=== PATIENT | male | born 1930 | race Caucasian/White ===

== ENCOUNTER 2016-06-23 02:49 | Inpatient (IN) | payer MEDICARE, BC ==
[2016-06-23 03:09] LABS: BASOPHIL# 0.1 X 10^3uL (0.0-0.1); BASOPHILS 0.6 % (0.0-2.0); EOSINOPHILS 0.4 % (0.0-6.0); EOSINOPHILS# 0.1 X 10^3uL (0.0-0.4); HEMOGLOBIN 18.7 g/dL (14.0-18.0); LYMPHOCYTES 6.8 % (20.0-40.0); LYMPHOCYTES# 0.9 X 10^3uL (0.8-3.8); MEAN CELL VOLUME 86.4 fL (80.0-100.0); MEAN CORPUS. HGB CONCENTRATION 33.3 g/dL (32.0-36.0); MEAN CORPUSCULAR HEMOGLOBIN 28.8 pg (29.0-35.0); MEAN PLATELET VOLUME 8.2 fL (7.4-10.4); MONOCYTES 5.9 % (2.0-10.0); MONOCYTES# 0.8 X 10^3uL (0.2-1.0); NEUTROPHILS 86.3 % (54.0-75.0); NEUTROPHILS# 10.9 X 10^3uL (2.6-6.7); PLATELET COUNT 187 X 10^3uL (130-440); RED BLOOD COUNT 6.48 X 10^6uL (4.20-6.10); RED CELL DISTRIBUTION WIDTH 12.7 % (11.5-14.5); WHITE BLOOD COUNT 12.8 X 10^3uL (3.9-10.7)
[2016-06-23] MEDS ORDERED: ONDANSETRON ODT 4 MG TAB.RAPDIS ONE (03:11)
[2016-06-23 03:18] LABS: ALBUMIN 4.3 g/dL (3.5-5.0); ALKALINE PHOSPHATASE 109 U/L (38-126); ALT 51 U/L (21-72); AST 33 U/L (17-59); BILIRUBIN, DIRECT 0.4 mg/dL (0.0-0.4); BLOOD UREA NITROGEN 20 mg/dL (9-20); CALCIUM 9.8 mg/dL (8.4-10.2); CHLORIDE 103 mmol/L (98-107); CREATININE 0.8 mg/dL (0.7-1.3); GLUCOSE 133 mg/dL (70-100); LIPASE 178 U/L (23-300); POTASSIUM 4.3 mmol/L (3.5-5.1); SODIUM 143 mmol/L (137-145); TOTAL PROTEIN 7.8 g/dL (6.3-8.2)
[2016-06-23] MEDS ORDERED: HOME MEDICATION LIST NEEDED 1 EA EACH MISC ONE (03:46)
[2016-06-23] MEDS ORDERED: ACETAMINOPHEN 325 MG TABLET PO PRN (03:51)
--- NOTE | 2016-06-23 04:25 | ER PHYSICIAN DOCUMENTATION ---
Physician Documentation [place] [facility] Name:Sandor Mota Age:85 yrs Sex:Male :1930 Arrival Date:06/23/2016 Time:02:49 Bed4 Private MD:Kaylah Rios ED, John Disposition: 06/23/16 04:00 Admit ordered for Kaykay Beltran. Preliminary diagnosis are Vomiting - Dehydration, Weakness. - Bed requested for Medical/Surgical. - Condition is Fair. - Problem is new. - Symptoms are unchanged. 23 HR OBS Yes HPI: 06/23 03:26 This 85 yrs old Male presents to ER with complaints of Nausea/Vomiting. jm 03:26 The patient presents to the emergency department with nausea, with vomiting, without jm any complaints of abdominal pain. Onset: The symptom(s)/episode began/occurred at 21:00. Possible causes: unknown. The symptoms are alleviated by nothing. Associated signs and symptoms: Pertinent positives: fever. Severity of symptoms: in the emergency department the symptoms have improved mildly. Unable to obtain HPI due to baseline dementia. The patient has not experienced similar symptoms in the past. The patient has not recently seen a physician. 85 yo M who started vomiting at 9pm last night and continued throughout the night. He vomited COLLEGE RECRUITER, but coughed a lot after the last one. His finally called 911. HX not obtainable from pt, as he has severe dementia. . Historical: - Allergies: No known drug Allergies; - Home Meds: 1. Lovastatin Oral 2. Aspirin Oral 3. Ambien Oral - PMHx: DEMENTIA; BPH; Hypertension; Headaches; Hematuria; CANCER, BLADDER; DEMENTIA; GOUT; TRANSIENT CEREBRAL ISCHEMIA; Fall (September 21, 2015); Chronic Dementia (September 21, 2015); Knee Contusion (September 21, 2015); - Tetanus: < 10 years. - Ebola Screening: : Patient negative for fever greater than or equal to 101.5 degrees Fahrenheit, and additional compatible Ebola Virus Disease symptoms. - Immunization history: Flu Vaccine < 1 year. - Social history: Smoking status: Patient states was never smoker of tobacco. ROS: 03:30 Constitutional: Positive for fever. jm 03:30 ENT: Negative for rhinorrhea, sinus congestion, sinus pain, difficulty swallowing. 03:30 Cardiovascular: Negative for chest pain. 03:30 Respiratory: Positive for cough. 03:30 Abdomen/GI: Positive for nausea, vomiting, Negative for abdominal pain, diarrhea. 03:30 : Positive for bladder incontinence, Negative for foul smelling urine. 03:30 Skin: Negative for rash. 03:30 Neuro: Positive for weakness, Negative for near syncope. 03:30 Psych: Positive for insomnia, Negative for drug dependence, alcohol dependence. 03:30 All other systems are negative. Exam: 03:31 Constitutional: The patient appears alert, awake, comfortable. 03:31 Eyes: Periorbital structures: appear normal, Pupils: equal, round, and reactive to light and accomodation. 03:31 Neck: Thyroid: appears normal, Trachea: is midline with no obvious abnormalities. 03:31 Chest/axilla: Inspection: normal, Palpation: is normal. 03:31 Cardiovascular: Rate: tachycardic, Rhythm: regular. 03:31 Respiratory: the patient does not display signs of respiratory distress, Respirations: normal, Breath sounds: are normal. 03:31 Abdomen/GI: Bowel sounds: normal, Palpation: abdomen is soft and non-tender. 03:31 : Male external genitalia: normal, Bladder: is normal. 03:31 Skin: Appearance: Color: pink, Turgor: is poor. 03:31 Neuro: Mentation: able to follow commands, Memory: recent memory is impaired. 03:31 Psych: Behavior/mood is pleasant, cooperative, Affect is calm. 03:43 ENT: Nose: is normal, Mouth: Oral mucosa: dry. Vital Signs: 02:50 BP 181 / 107; Pulse 104; Resp 20; Temp 100.1(TE); Pulse Ox 87% on R/A; rh 04:00 BP 175 / 80; Pulse 90; Resp 19; Pulse Ox 92% on 2 lpm NC; rh 04:23 BP 161 / 91; Pulse 82; Resp 19; Pulse Ox 94% on 3 lpm NC; rh MDM: 03:04 Patient medically screened. abdirizak 03:33 Differential diagnosis: viral gastroenteritis, gastroenteritis. abdirizak 03:38 Differential diagnosis: aspiration PNA. Data reviewed: vital signs, nurses notes, old medical records, lab test result(s), radiologic studies, and as a result, I will admit patient. Test interpretation: by ED physician or midlevel provider: plain radiologic studies, ECG. Counseling: I had a detailed discussion with the patient and/or guardian regarding: the historical points, exam findings, and any diagnostic results supporting the discharge/admit diagnosis, lab results, radiology results, the need for further work-up and treatment in the hospital. Physician consultation: Kaykay Bletran MD regarding admission, and will see patient shortly, later today. Admission orders: after a detailed discussion of the patient's condition and case, the admit orders are written by me. ED course: Pt w possible aspiration causing some hypoxia, but I don't see anything on the CXR that would suggest a large aspiration or hear any wheezing, despite what EMS stated. Perhaps pt has some pneumonitis causing the mild hypoxia, but I feel it is form dehydration and generalized weakness. Pt looks dehydrated on exam w poor skin turgor and dry membranes. 1LNS has dropped down his HR to 90. Will wait for UA to decide if pt needs abx as I cannot find a source (besides maybe GI). . 03:58 ED course: Spoke w Dr. Beltran who is ok w admission. Will hold off on abx until we can jm find a definitive source. . 06/23 03:25 Order name: CBC AUTO DIF, MDIF/RMOR IF IND; Complete Time: 03:26 EDMS 06/23 03:25 Order name: BASIC METABOLIC PANEL; Complete Time: 03:26 EDMS 06/23 03:25 Order name: HEPATIC PANEL; Complete Time: 03:26 EDMS 06/23 03:25 Order name: LIPASE; Complete Time: 03:26 EDMS 06/23 03:38 Order name: LACTATE; Complete Time: 03:53 EDMS 06/23 02:54 Order name: I & O; Complete Time: 03:35 rh 06/23 02:54 Order name: IV large bore X 2; Complete Time: 03:35 rh 06/23 02:54 Order name: NPO; Complete Time: 03:35 rh 06/23 02:54 Order name: Oxygen; Complete Time: 03:35 rh 06/23 02:54 Order name: Place Patient On Monitor; Complete Time: 03:35 rh 06/23 02:54 Order name: Pulse Ox Continuous; Complete Time: 03:35 rh Dispensed Medications: 03:05 Drug: NS 0.9% 1000 ml; Route: IV; Rate: bolus; Site: right antecubital; rh 04:12 Follow up: IV Status: Completed infusion; IV Intake: 1000ml rh Signatures: Curtis Nevarez MD MD jm Hofsess, Rachel
--- NOTE | 2016-06-23 04:25 | ER NURSING DOCUMENTATION ---
Nurse's Notes [facility] Name:Sandor Mota Age:85 yrs Sex:Male :1930 Arrival Date:06/23/2016 Time:02:49 Bed4 Private MD:Kaylah Rios Diagnosis:Vomiting - Dehydration;Weakness Presentation: 06/23 02:53 Acuity: OLIVA 2 03:35 Presenting complaint: EMS states: PT has been vomiting throughout the day, this evening rh his vomited on himself and was coughing, woke up. Pt was covered in urine and vomit. Transition of care: Home. Care prior to arrival: IV initiated. gauge and site 20 G in the R AC Glucose check. 137 Oxygen administered. IV Fluids given by EMS Other 150 NS Medication(s) given: Zofran 4mgODT Labs. 03:35 Method Of Arrival: EMS: 410 Triage Assessment: 03:43 General: Appears in no apparent distress, Behavior is cooperative. Pain: Unable to use pain scale. Pt unable to understand due to demetia. EENT: Oral mucosa is dry. Neuro: Level of Consciousness is awake, alert. Cardiovascular: Capillary refill < 3 seconds. Respiratory: Airway is patent Respiratory effort is even, unlabored, Respiratory pattern is regular, symmetrical, Breath sounds are diminished in right posterior middle lobe and right posterior lower lobe. GI: Abdomen is non- distended Bowel sounds present X 4 quads. Parent/caregiver reports the patient having nausea, vomiting. : Parent/caregiver report the patient having incontinence BASELINE. Derm: Skin is intact, Skin is pink, warm & dry. Historical: - Allergies: No known drug Allergies; - Home Meds: 1. Lovastatin Oral 2. Aspirin Oral 3. Ambien Oral - PMHx: DEMENTIA; BPH; Hypertension; Headaches; Hematuria; CANCER, BLADDER; DEMENTIA; GOUT; TRANSIENT CEREBRAL ISCHEMIA; Fall (September 21, 2015); Chronic Dementia (September 21, 2015); Knee Contusion (September 21, 2015); - Tetanus: < 10 years. - Ebola Screening: : Patient negative for fever greater than or equal to 101.5 degrees Fahrenheit, and additional compatible Ebola Virus Disease symptoms. - Immunization history: Flu Vaccine < 1 year. - Social history: Smoking status: Patient states was never smoker of tobacco. Screenin:51 Infectious Disease Risk None. Abuse screen: Denies threats or abuse. Denies injuries rh from another. Nutritional screening: No deficits noted. Assessment: 03:51 See Triage Assessment done by same RN. rh Vital Signs: 02:50 BP 181 / 107; Pulse 104; Resp 20; Temp 100.1(TE); Pulse Ox 87% on R/A; rh 04:00 BP 175 / 80; Pulse 90; Resp 19; Pulse Ox 92% on 2 lpm NC; rh 04:23 BP 161 / 91; Pulse 82; Resp 19; Pulse Ox 94% on 3 lpm NC; rh ED Course: 02:53 Patient arrived in ED. em2 02:53 Kaylah Rios MD is Private Physician. em2 02:53 Ximena Romero is Primary Nurse. rh 02:53 Triage completed. rh 02:54 Port Xray Completed. dayron 03:00 Maintain field IV. Dressing intact. Site clean & dry. Gauge & site: 20G in the R AC. rh Oxygen Oxygen administration via non-rebreather mask @ 15L/min. 03:00 Notified ED Physician of patient's arrival and chief complaint. Dr. Nevarez notified. rh 03:04 Curtis Nevarez MD is Attending Physician. 03:05 rework machine operator on. Pulse ox on. NIBP on. rh 03:10 Labs drawn. By flavoring machine operator Sent per order to lab. First set of blood cultures drawn by me. em1 03:40 Quick cath inserted 16 Fr. Returned unable to pass around prostate, attempted with coude' cath . 03:51 Valuables Remains with patient Patient has correct armband on for positive rh identification. Placed in gown. Bed in low position. Call light in reach. Side rails up X 1. Family accompanied patient. 03:59 Kaykay Beltran MD is Admitting Physician. abdirizak Administered Medications: 03:05 Drug: NS 0.9% 1000 ml; Route: IV; Rate: bolus; Site: right antecubital; rh 04:12 Follow up: IV Status: Completed infusion; IV Intake: 1000ml rh Intake: 04:12 IV: 1000ml; Total: 1000ml. rh Output: 03:49 Stool: 1 (Formed Stool) ; Total: 0ml. mv Outcome: 04:00 Decision to Admit by Provider. abdirizak 04:23 Admitted to Med/surg accompanied by nurse, via stretcher, with chart. 04: Condition: stable 04:23 Report given to EV MUNSON FROM MED SURG 04: Instructed on need to admit 04:23 Patient left the ED. Signatures: Curtis Nevarez MD MD jm Abbott, Andressa padgett [facility], [employer] em1 Meinking-reg, Татьяна-reg em2 Ximena Romero funmilayo castellanos
[2016-06-23] MEDS: NORMAL SALINE 1,000 ML IV SCH ×2 (05:18→11:26)
[2016-06-23] MEDS ORDERED: AZITHROMYCIN 250 MG TABLET PO ONE (07:25)
[2016-06-23] MEDS ORDERED: NORMAL SALINE 500 ML IV ONE (07:26)
--- NOTE | 2016-06-23 07:39 | RADIOLOGY REPORT ---
A limited single portable view of the chest is compared with prior film dated 11/2015. The heart and vessels are stable and unremarkable. Stable scarring is seen at the right lung base. There is stable elevation of the right hemidiaphragm. There has been interval development of a mixed infiltrate in the left infrahilar region. No fluid or pneumothorax is seen. IMPRESSION: Interval development of mixed infiltrate in the left infrahilar region. The findings were personally reviewed with Dr. Rios at 0725 hours on 2016. [facility]
[2016-06-23] MEDS ORDERED: cefTRIAXone SODIUM 1,000 MG/10 ML VIAL IV SCH (08:00)
[2016-06-23] MEDS ORDERED: NORMAL SALINE IV SCH (09:00)
[2016-06-23] MEDS ORDERED: AZITHROMYCIN 250 MG TABLET PO SCH (09:00)
[2016-06-23] MEDS ORDERED: CEFTRIAXONE SODIUM IV SCH (09:00)
[2016-06-23] MEDS: cefTRIAXone SODIUM 1,000 MG in NORMAL SALINE MINI-BAG+ 100 ML IV SCH (09:53)
[2016-06-23] MEDS ORDERED: NORMAL SALINE MINI-BAG+ 100 ML IV ONE (09:54)
[2016-06-23 10:42] LABS: URINE MUCUS NONE SEEN (Up to 25%)
[2016-06-23 10:45] LABS: URINE SPERM NONE SEEN
--- NOTE | 2016-06-23 12:20 | RADIOLOGY REPORT ---
A single view of the chest is compared with film earlier on the same date. Patchy infiltrate in the left infrahilar region remains unchanged. Stable scarring at the right lung base and stable elevation of the right hemidiaphragm is noted. The heart and vessels are stable and unremarkable. Views of the abdomen demonstrate a large amount of retained fecal material throughout the colon. Scattered nonspecific small bowel gas is seen. No pathologic calcifications or free air are identified. IMPRESSION: 1. Stable patchy infiltrate in the left infrahilar region. 2. Large amount of retained fecal material throughout the colon. MTDD
--- NOTE | 2016-06-23 12:45 | HISTORY & PHYSICAL ---
DATE OF ADMISSION: 06/23/16 HISTORY OF PRESENT ILLNESS: The patient presented to the emergency room during the night with recurrent emesis over the course of the day. Because of his severe dementia, further history is quite difficult. He apparently did not complain of any abdominal pain but would repeatedly vomit and was unable to keep fluids down. There was no cough, diarrhea, constipation, significant urinary complaints noted by the family. PAST MEDICAL HISTORY 1. Profound dementia perhaps multi-infarct related. Seen by Neurology in the past, but not on medications mostly due to cost reasons. 2. Recurrent falls. 3. History of transitional cell bladder cancer. 4. History of hypertension. 5. Hypercholesterolemia. 6. Possible gout. PAST SURGICAL HISTORY 1. Cholecystectomy. 2. Bladder cancer resected via cystoscope. 3. Transurethral resection of the prostate in 2012. There are no apparent difficulties emptying the bladder in recent history. ALLERGIES: No known allergies. SOCIAL HISTORY: He quite smoking about 30 years ago. Does not drink alcohol. Retired garber and senior benefits analyst. Living with his and adult daughter in [place]. They are taking steps to sell their family home as it is too high maintenance for the alone. Mr. Mota has spent some time at [facility] but they felt they could meet his needs at home and the costs were exorbitant without Medicaid in place so he has been home for the better part of a year. MEDICATIONS He takes 2.5 to 5 mg of Ambien at night otherwise he is up wandering at risk of falls. He takes daily aspirin. PHYSICAL EXAMINATION VITAL SIGNS: Afebrile, blood pressure is 133/72, pulse of 77, respiratory rate 16-20. He is 94% initially on 2 liters of oxygen. Now he is on a half liter of oxygen and still oxygenating very well. GENERAL: He is a thin, frail appearing man with significant dementia. His ability to communicate is significantly decreased from last I saw him, but nursing staff say that he was able to answer a few questions on admission indicating he was not having any pain or nausea and he knew he was at the hospital. HEENT: His mucous membranes appeared dry. Extraocular movements are intact and symmetric. CARDIAC: Distant S1, S2. CHEST: Clear to auscultation. Respirations are easy. ABDOMEN: Reveals somewhat hyperactive bowel tones. The abdomen is scaphoid, thin. It seems to me there is some muscular guarding going on making deep abdominal exam difficult. He does not seem to have definitive pain with palpation of any one part of his abdomen. A bladder scan done at the bedside revealed reasonable results of less than 200 mL of urine in the bladder. A condom catheter is in place. Apparently his prostate or possibly his bladder cancer did not allow a catheter to be placed during the night. There is no urine in the bag yet but he was just admitted a few hours ago. LABORATORY DATA: Reveal white count of 12.8, elevated hemoglobin and hematocrit at 18.7/56. There are 86.3% neutrophils. Chemistries fairly unremarkable. A CMP reveals only a glucose of 133. Urine has not yet been obtained. Chest x-ray was read by Dr. Roberts as a left basilar infiltrate. ASSESSMENT AND PLAN 1. Nausea and vomiting within the last 24 hours in a gentleman with profound dementia thus history is pretty difficult. His CBC and chest x-ray and initial hypoxia suggest there may be a left lower lobe pneumonia. Rocephin and azithromycin will be initiated while we wait for blood cultures and follow CBC. I am also concerned he may have an intra-abdominal process, although it may be a simple viral gastroenteritis. There are no definite signs of obstruction at this time, and an abdominal film will be done for further information and the level of intervention discussed with the family. The is very realistic that her has very advanced dementia and his quality of life has been poor for several years. We will need to decide if we are going to pursue abdominal CT scan if needed or just treat what we see and follow along. This will be discussed with the in person or by phone this morning. Mr. Mota is a clearly stated do not resuscitate. 2. History of bladder cancer and enlarged prostate, unable to place Lewis catheter. There is no significant postvoid residual so I do not see that there are any active issues here although there was potential for them. 3. Dehydration. Regardless of whether this is primarily a pulmonary or gastroenterology diagnosis, the patient is still dehydrated thus he will be given a bolus of saline today and we will monitor his vital signs and urinary output and treat accordingly. MTDD
[2016-06-23] MEDS: LOVASTATIN 20 MG TABLET PO SCH (20:54)
[2016-06-23] MEDS: ZOLPIDEM TARTRATE 5 MG TABLET PO SCH (20:54)
[2016-06-24] MEDS: NORMAL SALINE 1,000 ML IV SCH ×2 (02:42→10:54)
[2016-06-24 05:45] LABS: BASOPHILS 0.5 % (0.0-2.0); EOSINOPHILS 3.2 % (0.0-6.0); EOSINOPHILS# 0.3 X 10^3uL (0.0-0.4); HEMATOCRIT 40.8 % (42.0-54.0); LYMPHOCYTES 19.7 % (20.0-40.0); LYMPHOCYTES# 1.6 X 10^3uL (0.8-3.8); MEAN CELL VOLUME 87.3 fL (80.0-100.0); MEAN CORPUS. HGB CONCENTRATION 34.3 g/dL (32.0-36.0); MEAN PLATELET VOLUME 8.1 fL (7.4-10.4); MONOCYTES 5.9 % (2.0-10.0); MONOCYTES# 0.5 X 10^3uL (0.2-1.0); NEUTROPHILS 70.7 % (54.0-75.0); NEUTROPHILS# 5.6 X 10^3uL (2.6-6.7); PLATELET COUNT 157 X 10^3uL (130-440); RED BLOOD COUNT 4.67 X 10^6uL (4.20-6.10); RED CELL DISTRIBUTION WIDTH 12.7 % (11.5-14.5)
[2016-06-24 05:49] LABS: BLOOD UREA NITROGEN 14 mg/dL (9-20); CALCIUM 8.3 mg/dL (8.4-10.2); CHLORIDE 107 mmol/L (98-107); CREATININE 0.8 mg/dL (0.7-1.3); GLUCOSE 93 mg/dL (70-100); POTASSIUM 3.8 mmol/L (3.5-5.1); SODIUM 139 mmol/L (137-145)
--- NOTE | 2016-06-24 07:41 | PROGRESS NOTE: IM APSO ---
Assessment and Plan - Date of Encounter Date of Encounter: 06/24/16 (1) Constipation Status: Acute Assessment and plan: He likely still has some constipation despite having 1 bowel movement yesterday. Current Visit: No (2) History of bladder cancer Status: Acute Assessment and plan: He evidently had some malignant cells on a bladder wash after his cystoscopic excision, but is not a candidate for surgery. Current Visit: No (3) LLL pneumonia Status: Acute Assessment and plan: Left lower lobe infiltrate on x-ray. He is requiring 2 L/m of oxygen. I will continue him on Rocephin and azithromycin. Current Visit: No (4) Nausea & vomiting Status: Acute Assessment and plan: this was the initial trigger for his admission, but he has had no further episodes since admission. Likely he had a viral syndrome. Current Visit: No (5) UTI (urinary tract infection) Status: Acute Assessment and plan: This is being treated. Culture pending. Continue IV Rocephin Current Visit: No (6) Gait instability Status: Chronic Assessment and plan: At home he is able to walk to the bath. Here he is only able to take a few steps. He will need another day or 2 before he is strong enough to go home Current Visit: No (7) Risk for falls Status: Chronic Assessment and plan: He remains at high risk for falls. I will have him continue physical therapy Current Visit: No (8) Generalized weakness Status: Acute Assessment and plan: Acute on chronic. Continue physical therapy. Current Visit: No (9) Dementia Status: Chronic Assessment and plan: this is quite severe. Current Visit: No - Time Spent With Patient Total time spent with greater than 50% in coordination of care (as documented) at patient's floor/unit and/or counseling patient: Estimated anticipated discharge: 06/26??? IM: PN Subjective General: fatigue, confusion (severe), no fever, no chills Cardiovascular: no chest pain Respiratory: no cough, no wheeze, no SOB Gastrointestinal: constipation, no abdominal pain, no nausea, no vomiting, no diarrhea Musculoskeletal: no pain Integumentary: no rashes Neurological: limb weakness (generalized) IM: PN Objective Exam - I&O/Vital Signs I&O: Intake & Output 06/23/16 06/24/16 06/24/16 21:59 05:59 13:59 Intake Total 1450 Output Total 700 Balance 750 Intake: IV 1300 Left Wrist 1300 Oral 150 Output: Urine 700 Other: Urine Appearance Cloudy Urine Color Dark Kelly Brown Stool Size Large Stool Characteristics Soft Formed Brown Voiding Method Indwelling Catheter Incontinent # Voids 2 # Bowel Movements 1 Vital Signs: Last Vital Signs Temp 36.5 C 06/24/16 06:41 Pulse 99 H 06/24/16 06:41 Resp 16 06/24/16 06:41 BP 159/88 06/24/16 06:41 Pulse Ox 90 06/24/16 06:41 Oxygen Flow Rate 2 Oxygen Delivery Method Nasal Cannula - Constitutional General appearance: Present: average body habitus, cooperative (but very confused.). Absent: acute distress - Head Head exam: Present: normal inspection - ENT ENT exam: Present: mucous membranes moist - Respiratory Respiratory exam: Present: decreased breath sounds, clear - Cardiovascular Cardiovascular exam: Present: RRR - GI/Abdominal GI/Abdominal exam: Present: soft. Absent: tenderness - Extremities Exam Extremities exam: Absent: calf tenderness, edema - Neurological Exam Neurological exam: Present: alert. Absent: oriented X3 (did not answer any questions.) - Psychiatric Psychiatric exam: Present: flat affect - Skin Skin exam: Absent: rash - Allied Health Notes Allied health notes reviewed: case management, nursing, PT - Lab Labs: Laboratory Last Values WBC 8.0 X 10^3uL (3.9-10.7) 06/24/16 05:00 RBC 4.67 X 10^6uL (4.20-6.10) 06/24/16 05:00 Hgb 14.0 g/dL (14.0-18.0) 06/24/16 05:00 Hct 40.8 % (42.0-54.0) L 06/24/16 05:00 MCV 87.3 fL (80.0-100.0) 06/24/16 05:00 MCH 30.0 pg (29.0-35.0) 06/24/16 05:00 MCHC 34.3 g/dL (32.0-36.0) 06/24/16 05:00 RDW 12.7 % (11.5-14.5) 06/24/16 05:00 Plt Count 157 X 10^3uL (130-440) 06/24/16 05:00 MPV 8.1 fL (7.4-10.4) 06/24/16 05:00 Neutrophils % 70.7 % (54.0-75.0) 06/24/16 05:00 Lymphocytes % 19.7 % (20.0-40.0) L 06/24/16 05:00 Eosinophils % 3.2 % (0.0-6.0) 06/24/16 05:00 Basophils % 0.5 % (0.0-2.0) 06/24/16 05:00 Neutrophils # 5.6 X 10^3uL (2.6-6.7) 06/24/16 05:00 Lymphocytes # 1.6 X 10^3uL (0.8-3.8) 06/24/16 05:00 Monocytes 5.9 % (2.0-10.0) 06/24/16 05:00 Monocytes # 0.5 X 10^3uL (0.2-1.0) 06/24/16 05:00 Eosinophils # 0.3 X 10^3uL (0.0-0.4) 06/24/16 05:00 Basophils # 0.0 X 10^3uL (0.0-0.1) 06/24/16 05:00 Sodium 139 mmol/L (137-145) 06/24/16 05:00 Potassium 3.8 mmol/L (3.5-5.1) 06/24/16 05:00 Chloride 107 mmol/L (98-107) 06/24/16 05:00 Carbon Dioxide 27 mmol/L (22-30) 06/24/16 05:00 BUN 14 mg/dL (9-20) 06/24/16 05:00 Creatinine 0.8 mg/dL (0.7-1.3) 06/24/16 05:00 GFR Calculation Not Reportable 06/24/16 05:00 Glucose 93 mg/dL (70-100) 06/24/16 05:00 Lactic Acid 1.4 mmol/L (0.7-2.1) 06/23/16 02:20 Calcium 8.3 mg/dL (8.4-10.2) L 06/24/16 05:00 Total Bilirubin 1.0 mg/dL (0.2-1.3) 06/23/16 02:20 Direct Bilirubin 0.4 mg/dL (0.0-0.4) 06/23/16 02:20 AST 33 U/L (17-59) 06/23/16 02:20 ALT 51 U/L (21-72) 06/23/16 02:20 Alkaline Phosphatase 109 U/L (38-126) 06/23/16 02:20 Total Protein 7.8 g/dL (6.3-8.2) 06/23/16 02:20 Albumin 4.3 g/dL (3.5-5.0) 06/23/16 02:20 Lipase 178 U/L (23-300) 06/23/16 02:20 Urine Color Cancelled 06/23/16 03:56 Urine Appearance Cancelled 06/23/16 03:56 Urine pH Cancelled 06/23/16 03:56 Ur Specific [place] Cancelled 06/23/16 03:56 Urine Protein Cancelled 06/23/16 03:56 Urine Ketones Cancelled 06/23/16 03:56 Urine Blood Cancelled 06/23/16 03:56 Urine Nitrate Cancelled 06/23/16 03:56 Urine Bilirubin Cancelled 06/23/16 03:56 Urine Urobilinogen Cancelled 06/23/16 03:56 Ur Leukocyte Esterase Cancelled 06/23/16 03:56 Urine RBC >100/hpf (0-5/hpf) 06/23/16 03:56 Urine WBC >100/hpf (0-4/hpf) 06/23/16 03:56 Ur Squamous Epith Cells 5-10/hpf (<= 15/hpf) 06/23/16 03:56 Urine Bacteria 20-50 organisms/hpf (<10/hpf) 06/23/16 03:56 Urine Mucus None seen (Up to 25%) 06/23/16 03:56 Urine Sperm None seen 06/23/16 03:56 Urine Glucose Cancelled 06/23/16 03:56 Quality Questions - VTE Prophylaxis Assessment VTE Present on Admission?: No Patient at risk for venous thromboembolism?: Yes VTE Risk Level: High Risk Pharmaceutical VTE prophylaxis contraindication reason: N/A- VTE prophylaxsis ordered Mechanical VTE prophylaxis contraindication reason: N/A- VTE prophylaxsis ordered (9) Dementia Qualifiers: Dementia type: vascular dementia Dementia behavioral disturbance: without behavioral disturbance Qualified Code(s): F01.50 - Vascular dementia without behavioral disturbance
[2016-06-24] MEDS: AZITHROMYCIN 250 MG TABLET PO SCH (08:09)
[2016-06-24] MEDS: POLYETHYLENE GLYCOL 3350 17 GM POWD.PACK PO SCH (08:09)
[2016-06-24] MEDS: cefTRIAXone SODIUM 1,000 MG in NORMAL SALINE MINI-BAG+ 100 ML IV SCH (09:00)
[2016-06-24] MEDS: ZOLPIDEM TARTRATE 5 MG TABLET PO SCH (22:12)
[2016-06-24] MEDS: LOVASTATIN 20 MG TABLET PO SCH (22:12)
--- NOTE | 2016-06-25 08:59 | PROGRESS NOTE: IM APSO ---
Assessment and Plan - Date of Encounter Date of Encounter: 06/25/16 (1) Constipation Status: Acute Assessment and plan: Doing better. One bowel movement yesterday. Current Visit: No (2) History of bladder cancer Status: Acute Assessment and plan: He evidently had some malignant cells on a bladder wash after his cystoscopic excision, but is not a candidate for surgery. Current Visit: No (3) LLL pneumonia Status: Acute Assessment and plan: Left lower lobe infiltrate on x-ray. He is requiring 2 L/m of oxygen. I will continue him on Rocephin and azithromycin. I have some suspicion of an aspiration pneumonia, given his mild dysphagia. According to his , he is swallowing better here with a pureed diet Current Visit: No (4) Nausea & vomiting Status: Acute Assessment and plan: This was the initial trigger for his admission, but he has had no further episodes since admission. Likely he had a viral syndrome. Current Visit: No (5) UTI (urinary tract infection) Status: Acute Assessment and plan: This is being treated. Culture pending. Continue IV Rocephin Current Visit: No (6) Gait instability Status: Chronic Assessment and plan: At home he is able to walk to the bath. Here he is only able to take a few steps. yesterday he seemed to lean toward the right. Today he is not doing that as much. He will need another day or 2 before he is strong enough to go home Current Visit: No (7) Risk for falls Status: Chronic Assessment and plan: He remains at high risk for falls. I will have him continue physical therapy Current Visit: No (8) Generalized weakness Status: Acute Assessment and plan: Acute on chronic. Continue physical therapy. Current Visit: No (9) Dementia Status: Chronic Assessment and plan: this is quite severe. it is possible that he had another TIA yesterday, given his tendency to tip to the right. That seems to be better today. I discussed stroke prophylaxis with his . He will continue on aspirin daily. I discussed the option of a stronger blood thinner, but both of us agreed that the risks may outweigh the benefits, given his high fall risk. They are considering moving to be at lower altitude and closer to children. I support this, but would advise considering a halfway center, rather than a private home. I will discuss these issues with his again tomorrow. I would appreciate further input from social work. Current Visit: No - Time Spent With Patient Total time spent with greater than 50% in coordination of care (as documented) at patient's floor/unit and/or counseling patient: Estimated anticipated discharge: 06/26??? IM: PN Subjective General: fatigue, confusion (severe-chronic), no fever, no chills Cardiovascular: no chest pain Respiratory: no cough, no wheeze, no SOB Gastrointestinal: no abdominal pain, no nausea, no vomiting, no diarrhea, no constipation (he had a bowel movement yesterday.) Musculoskeletal: no pain Integumentary: no rashes Neurological: limb weakness (some concern about right sided weakness yesterday by PT) IM: PN Objective Exam - I&O/Vital Signs I&O: Intake & Output 06/24/16 06/25/16 06/25/16 21:59 05:59 13:59 Intake Total 400 Balance 400 Intake: Oral 400 Other: Urine Appearance Cloudy Urine Color Brown Stool Size Large Stool Characteristics Soft Formed Brown Voiding Method Incontinent Incontinent # Voids 2 Vital Signs: Last Vital Signs Temp 37.1 C 06/25/16 07:00 Pulse 72 06/25/16 07:00 Resp 14 06/25/16 07:00 BP 135/103 06/25/16 07:00 Pulse Ox 92 06/25/16 07:00 Oxygen Flow Rate 1 Oxygen Delivery Method Nasal Cannula - Constitutional General appearance: Present: average body habitus, cooperative (but very confused. He is eating well with a pureed diet.). Absent: acute distress - Head Head exam: Present: normal inspection - ENT ENT exam: Present: mucous membranes moist - Respiratory Respiratory exam: Present: decreased breath sounds, clear - Cardiovascular Cardiovascular exam: Present: RRR - GI/Abdominal GI/Abdominal exam: Present: soft. Absent: tenderness - Extremities Exam Extremities exam: Absent: calf tenderness, edema - Neurological Exam Neurological exam: Present: alert. Absent: oriented X3 (did not answer any questions.) - Psychiatric Psychiatric exam: Present: flat affect - Skin Skin exam: Absent: rash - Allied Health Notes Allied health notes reviewed: case management, nursing, PT - Lab Labs: Laboratory Last Values WBC 8.0 X 10^3uL (3.9-10.7) 06/24/16 05:00 RBC 4.67 X 10^6uL (4.20-6.10) 06/24/16 05:00 Hgb 14.0 g/dL (14.0-18.0) 06/24/16 05:00 Hct 40.8 % (42.0-54.0) L 06/24/16 05:00 MCV 87.3 fL (80.0-100.0) 06/24/16 05:00 MCH 30.0 pg (29.0-35.0) 06/24/16 05:00 MCHC 34.3 g/dL (32.0-36.0) 06/24/16 05:00 RDW 12.7 % (11.5-14.5) 06/24/16 05:00 Plt Count 157 X 10^3uL (130-440) 06/24/16 05:00 MPV 8.1 fL (7.4-10.4) 06/24/16 05:00 Neutrophils % 70.7 % (54.0-75.0) 06/24/16 05:00 Lymphocytes % 19.7 % (20.0-40.0) L 06/24/16 05:00 Eosinophils % 3.2 % (0.0-6.0) 06/24/16 05:00 Basophils % 0.5 % (0.0-2.0) 06/24/16 05:00 Neutrophils # 5.6 X 10^3uL (2.6-6.7) 06/24/16 05:00 Lymphocytes # 1.6 X 10^3uL (0.8-3.8) 06/24/16 05:00 Monocytes 5.9 % (2.0-10.0) 06/24/16 05:00 Monocytes # 0.5 X 10^3uL (0.2-1.0) 06/24/16 05:00 Eosinophils # 0.3 X 10^3uL (0.0-0.4) 06/24/16 05:00 Basophils # 0.0 X 10^3uL (0.0-0.1) 06/24/16 05:00 Sodium 139 mmol/L (137-145) 06/24/16 05:00 Potassium 3.8 mmol/L (3.5-5.1) 06/24/16 05:00 Chloride 107 mmol/L (98-107) 06/24/16 05:00 Carbon Dioxide 27 mmol/L (22-30) 06/24/16 05:00 BUN 14 mg/dL (9-20) 06/24/16 05:00 Creatinine 0.8 mg/dL (0.7-1.3) 06/24/16 05:00 GFR Calculation Not Reportable 06/24/16 05:00 Glucose 93 mg/dL (70-100) 06/24/16 05:00 Lactic Acid 1.4 mmol/L (0.7-2.1) 06/23/16 02:20 Calcium 8.3 mg/dL (8.4-10.2) L 06/24/16 05:00 Total Bilirubin 1.0 mg/dL (0.2-1.3) 06/23/16 02:20 Direct Bilirubin 0.4 mg/dL (0.0-0.4) 06/23/16 02:20 AST 33 U/L (17-59) 06/23/16 02:20 ALT 51 U/L (21-72) 06/23/16 02:20 Alkaline Phosphatase 109 U/L (38-126) 06/23/16 02:20 Total Protein 7.8 g/dL (6.3-8.2) 06/23/16 02:20 Albumin 4.3 g/dL (3.5-5.0) 06/23/16 02:20 Lipase 178 U/L (23-300) 06/23/16 02:20 Urine Color Cancelled 06/23/16 03:56 Urine Appearance Cancelled 06/23/16 03:56 Urine pH Cancelled 06/23/16 03:56 Ur Specific [place] Cancelled 06/23/16 03:56 Urine Protein Cancelled 06/23/16 03:56 Urine Ketones Cancelled 06/23/16 03:56 Urine Blood Cancelled 06/23/16 03:56 Urine Nitrate Cancelled 06/23/16 03:56 Urine Bilirubin Cancelled 06/23/16 03:56 Urine Urobilinogen Cancelled 06/23/16 03:56 Ur Leukocyte Esterase Cancelled 06/23/16 03:56 Urine RBC >100/hpf (0-5/hpf) 06/23/16 03:56 Urine WBC >100/hpf (0-4/hpf) 06/23/16 03:56 Ur Squamous Epith Cells 5-10/hpf (<= 15/hpf) 06/23/16 03:56 Urine Bacteria 20-50 organisms/hpf (<10/hpf) 06/23/16 03:56 Urine Mucus None seen (Up to 25%) 06/23/16 03:56 Urine Sperm None seen 06/23/16 03:56 Urine Glucose Cancelled 06/23/16 03:56 (9) Dementia Qualifiers: Dementia type: vascular dementia Dementia behavioral disturbance: without behavioral disturbance Qualified Code(s): F01.50 - Vascular dementia without behavioral disturbance
[2016-06-25] MEDS ORDERED: LISINOPRIL 5 MG TABLET PO SCH (09:00)
[2016-06-25] MEDS: LISINOPRIL 5 MG TABLET PO SCH (09:51)
[2016-06-25] MEDS: POLYETHYLENE GLYCOL 3350 17 GM POWD.PACK PO SCH (09:53)
[2016-06-25] MEDS: cefTRIAXone SODIUM 1,000 MG in NORMAL SALINE MINI-BAG+ 100 ML IV SCH (09:53)
[2016-06-25] MEDS: AZITHROMYCIN 250 MG TABLET PO SCH (09:53)
[2016-06-25] MEDS: ZOLPIDEM TARTRATE 5 MG TABLET PO SCH (21:11)
[2016-06-25] MEDS: LOVASTATIN 20 MG TABLET PO SCH (21:11)
[2016-06-26 06:40] LABS: BASOPHIL# 0.1 X 10^3uL (0.0-0.1); BASOPHILS 0.9 % (0.0-2.0); EOSINOPHILS 4.1 % (0.0-6.0); EOSINOPHILS# 0.3 X 10^3uL (0.0-0.4); HEMATOCRIT 43.9 % (42.0-54.0); HEMOGLOBIN 15.3 g/dL (14.0-18.0); LYMPHOCYTES 17.7 % (20.0-40.0); LYMPHOCYTES# 1.3 X 10^3uL (0.8-3.8); MEAN CELL VOLUME 86.1 fL (80.0-100.0); MEAN CORPUS. HGB CONCENTRATION 34.8 g/dL (32.0-36.0); MEAN PLATELET VOLUME 8.1 fL (7.4-10.4); MONOCYTES 5.4 % (2.0-10.0); MONOCYTES# 0.4 X 10^3uL (0.2-1.0); NEUTROPHILS 71.9 % (54.0-75.0); NEUTROPHILS# 5.4 X 10^3uL (2.6-6.7); PLATELET COUNT 184 X 10^3uL (130-440); RED CELL DISTRIBUTION WIDTH 12.3 % (11.5-14.5); WHITE BLOOD COUNT 7.5 X 10^3uL (3.9-10.7)
[2016-06-26 06:51] LABS: BLOOD UREA NITROGEN 12 mg/dL (9-20); CALCIUM 8.9 mg/dL (8.4-10.2); CHLORIDE 101 mmol/L (98-107); CREATININE 0.7 mg/dL (0.7-1.3); GLUCOSE 116 mg/dL (70-100); POTASSIUM 3.8 mmol/L (3.5-5.1); SODIUM 137 mmol/L (137-145)
[2016-06-26] MEDS: POLYETHYLENE GLYCOL 3350 17 GM POWD.PACK PO SCH (09:27)
[2016-06-26] MEDS: LISINOPRIL 5 MG TABLET PO SCH (09:28)
[2016-06-26] MEDS: AZITHROMYCIN 250 MG TABLET PO SCH (09:30)
[2016-06-26] MEDS: cefTRIAXone SODIUM 1,000 MG in NORMAL SALINE MINI-BAG+ 100 ML IV SCH (09:30)
[2016-06-26] MEDS ORDERED: LISINOPRIL 5 MG TABLET PO SCH (13:06)
--- NOTE | 2016-06-26 14:08 | PROGRESS NOTE: IM APSO ---
Assessment and Plan - Date of Encounter Date of Encounter: 06/26/16 (1) Constipation Status: Acute Assessment and plan: Doing better. One bowel movement daily in the hospital. Current Visit: No (2) History of bladder cancer Status: Acute Assessment and plan: He evidently had some malignant cells on a bladder wash after his cystoscopic excision, but is not a candidate for surgery. Current Visit: No (3) LLL pneumonia Status: Acute Assessment and plan: Left lower lobe infiltrate on x-ray on admission (aspiration?). He is requiring 2 L/m of oxygen. He will complete 5 days of Rocephin and azithromycin tomorrow. I suspect aspiration pneumonia, given his mild dysphagia. He is swallowing well here with a pureed diet. Best to continue that diet at D/C. Probably will not need further Abx at D/C Current Visit: No (4) Nausea & vomiting Status: Acute Assessment and plan: This was the initial trigger for his admission, but he has had only 1 further episodes since admission. Likely he had a viral syndrome. Current Visit: No (5) UTI (urinary tract infection) Status: Acute Assessment and plan: Culture neg. Current Visit: No (6) Gait instability Status: Chronic Assessment and plan: At home he is able to walk to the bath. Nearly back to that now. Needs 1 more day before he is strong enough to go home Current Visit: No (7) Risk for falls Status: Chronic Current Visit: No (8) Generalized weakness Status: Acute Assessment and plan: Acute on chronic. Continue physical therapy. Current Visit: No (9) Dementia Status: Chronic Assessment and plan: This is quite severe. It is possible that he had another TIA 2 days ago, given his tendency to tip to the right that day. That seems resolved today. I discussed stroke prophylaxis with his . He will continue on aspirin daily. I discussed the option of a stronger blood thinner, but both of us agreed that the risks may outweigh the benefits, given his high fall risk. They are considering moving to be at lower altitude and closer to children. I support this, but would advise considering a shelter center, rather than a private home. Current Visit: No - Time Spent With Patient Total time spent with greater than 50% in coordination of care (as documented) at patient's floor/unit and/or counseling patient: Estimated anticipated discharge: 06/27 to home IM: PN Subjective General: confusion (severe-chronic), no fever, no chills Cardiovascular: no chest pain Respiratory: no cough, no wheeze, no SOB Gastrointestinal: no abdominal pain, no nausea, no vomiting, no diarrhea, no constipation (he had a bowel movement yesterday.) Musculoskeletal: weakness (improving, generalized), no pain Integumentary: no rashes IM: PN Objective Exam - I&O/Vital Signs I&O: Intake & Output 06/26/16 06/26/16 06/26/16 05:59 13:59 21:59 Output Total 600 Balance -600 Weight 64 kg Output: Urine 600 Other: Urine Appearance Clear Urine Color Yellow Voiding Method Incontinent Vital Signs: Last Vital Signs Temp 36.3 C L 06/26/16 11:00 Pulse 67 06/26/16 11:00 Resp 18 06/26/16 11:00 BP 156/90 06/26/16 11:00 Pulse Ox 93 06/26/16 11:00 Oxygen Flow Rate 1 Oxygen Delivery Method Room Air - Constitutional General appearance: Present: average body habitus, cooperative (sitting in the bedside chair and feeding himself pureed breakfast.). Absent: acute distress - Head Head exam: Present: normal inspection - ENT ENT exam: Present: mucous membranes moist - Respiratory Respiratory exam: Present: decreased breath sounds, clear - Cardiovascular Cardiovascular exam: Present: RRR - GI/Abdominal GI/Abdominal exam: Present: soft. Absent: tenderness - Extremities Exam Extremities exam: Absent: calf tenderness, edema - Neurological Exam Neurological exam: Present: alert. Absent: oriented X3 (did not answer any questions.) - Psychiatric Psychiatric exam: Present: flat affect - Skin Skin exam: Absent: rash - Allied Health Notes Allied health notes reviewed: case management, nursing, PT - Lab Labs: Laboratory Last Values WBC 7.5 X 10^3uL (3.9-10.7) 06/26/16 05:00 RBC 5.10 X 10^6uL (4.20-6.10) 06/26/16 05:00 Hgb 15.3 g/dL (14.0-18.0) 06/26/16 05:00 Hct 43.9 % (42.0-54.0) 06/26/16 05:00 MCV 86.1 fL (80.0-100.0) 06/26/16 05:00 MCH 30.0 pg (29.0-35.0) 06/26/16 05:00 MCHC 34.8 g/dL (32.0-36.0) 06/26/16 05:00 RDW 12.3 % (11.5-14.5) 06/26/16 05:00 Plt Count 184 X 10^3uL (130-440) 06/26/16 05:00 MPV 8.1 fL (7.4-10.4) 06/26/16 05:00 Neutrophils % 71.9 % (54.0-75.0) 06/26/16 05:00 Lymphocytes % 17.7 % (20.0-40.0) L 06/26/16 05:00 Eosinophils % 4.1 % (0.0-6.0) 06/26/16 05:00 Basophils % 0.9 % (0.0-2.0) 06/26/16 05:00 Neutrophils # 5.4 X 10^3uL (2.6-6.7) 06/26/16 05:00 Lymphocytes # 1.3 X 10^3uL (0.8-3.8) 06/26/16 05:00 Monocytes 5.4 % (2.0-10.0) 06/26/16 05:00 Monocytes # 0.4 X 10^3uL (0.2-1.0) 06/26/16 05:00 Eosinophils # 0.3 X 10^3uL (0.0-0.4) 06/26/16 05:00 Basophils # 0.1 X 10^3uL (0.0-0.1) 06/26/16 05:00 Sodium 137 mmol/L (137-145) 06/26/16 05:00 Potassium 3.8 mmol/L (3.5-5.1) 06/26/16 05:00 Chloride 101 mmol/L (98-107) 06/26/16 05:00 Carbon Dioxide 30 mmol/L (22-30) 06/26/16 05:00 BUN 12 mg/dL (9-20) 06/26/16 05:00 Creatinine 0.7 mg/dL (0.7-1.3) 06/26/16 05:00 GFR Calculation Not Reportable 06/26/16 05:00 Glucose 116 mg/dL (70-100) H 06/26/16 05:00 Lactic Acid 1.4 mmol/L (0.7-2.1) 06/23/16 02:20 Calcium 8.9 mg/dL (8.4-10.2) 06/26/16 05:00 Total Bilirubin 1.0 mg/dL (0.2-1.3) 06/23/16 02:20 Direct Bilirubin 0.4 mg/dL (0.0-0.4) 06/23/16 02:20 AST 33 U/L (17-59) 06/23/16 02:20 ALT 51 U/L (21-72) 06/23/16 02:20 Alkaline Phosphatase 109 U/L (38-126) 06/23/16 02:20 Total Protein 7.8 g/dL (6.3-8.2) 06/23/16 02:20 Albumin 4.3 g/dL (3.5-5.0) 06/23/16 02:20 Lipase 178 U/L (23-300) 06/23/16 02:20 Urine Color Cancelled 06/23/16 03:56 Urine Appearance Cancelled 06/23/16 03:56 Urine pH Cancelled 06/23/16 03:56 Ur Specific [place] Cancelled 06/23/16 03:56 Urine Protein Cancelled 06/23/16 03:56 Urine Ketones Cancelled 06/23/16 03:56 Urine Blood Cancelled 06/23/16 03:56 Urine Nitrate Cancelled 06/23/16 03:56 Urine Bilirubin Cancelled 06/23/16 03:56 Urine Urobilinogen Cancelled 06/23/16 03:56 Ur Leukocyte Esterase Cancelled 06/23/16 03:56 Urine RBC >100/hpf (0-5/hpf) 06/23/16 03:56 Urine WBC >100/hpf (0-4/hpf) 06/23/16 03:56 Ur Squamous Epith Cells 5-10/hpf (<= 15/hpf) 06/23/16 03:56 Urine Bacteria 20-50 organisms/hpf (<10/hpf) 06/23/16 03:56 Urine Mucus None seen (Up to 25%) 06/23/16 03:56 Urine Sperm None seen 06/23/16 03:56 Urine Glucose Cancelled 06/23/16 03:56 (9) Dementia Qualifiers: Dementia type: vascular dementia Dementia behavioral disturbance: without behavioral disturbance Qualified Code(s): F01.50 - Vascular dementia without behavioral disturbance
[2016-06-26 19:03] VITALS: RESP 18
[2016-06-26] MEDS: ZOLPIDEM TARTRATE 5 MG TABLET PO SCH (21:10)
[2016-06-26] MEDS: LOVASTATIN 20 MG TABLET PO SCH (21:10)
[2016-06-27 00:27] VITALS: TEMP 98.1
[2016-06-27 06:31] VITALS: BP 157/72; PULSE 72
--- NOTE | 2016-06-27 08:28 | DC SUMMARY: IM Note ---
Discharge Summary: IM/Peds Provider: Date of Admission: 06/24/16 Admitting Provider: FRANC JACOBSON MD Attending Provider: JUSTEN PERAZA MD Discharging Provider: MICHELLE VOGEL MD Primary Care Provider: Discharge Date: 06/27/16 - Diagnosis (1) LLL pneumonia Status: Acute (2) Constipation Status: Acute (3) Nausea & vomiting Status: Acute (4) History of bladder cancer Status: Chronic (5) Urinary incontinence, overflow Status: Chronic (6) Gait instability Status: Chronic Hospital Course: Patient admitted for constipation, nausea, and vomiting. With bowel regimen, IV fluid resuscitation, and supportive care, this resolved. However, he was noted to have cough with hypoxemia and chest x-ray showed evidence of left lower lobe infiltrate felt to be a presumed aspiration pneumonia. He was treated with ceftriaxone and azithromycin and responded well to this. Ceftriaxone will be given as a final dose on the last day of hospitalization. He has completed a five-day course of azithromycin. No further antibiotics prescribed at discharge , and he will be followed up in outpatient setting at [facility]. Of note , he does have a low O2 requirement and desaturates on room air. Will clarify with his on the day of discharge whether he has oxygen at home. If not, this will be prescribed. With regard to other issues, blood pressure fluctuated some during hospitalization. Lisinopril was decreased transiently and then increased back to his usual dose on discharge. Dementia/mental status appeared to be approaching baseline at the time of discharge. There was some concern about a possible TIA either before or early in the hospitalization due to a tendency to drift to the side with ambulation. This was discussed with his family, and the decision was made to continue aspirin, blood pressure medication, and cholesterol medication without adding in a full anticoagulant considering his age, comorbidities, quality of life issues,and fall risk. Again, he will be followed in outpatient setting. As above, there was some concern for aspiration but he showed no clinical evidence of such on a pured diet. This will be continued at the time of discharge. Finally, he remains a high fall risk. He will continue to use a walker, and family will continue to redirect as needed for proper use of a walker. - Time Spent with Patient Total time spent providing and/or coordinating discharge services: Discharge - Patient/Caregiver Discharge Instructions Activity Level: Ambulate with assistance. Use walker with ambulation. Diet: Pureed diet. Additional Instructions: Use Depends for urinary incontinence. Follow up: JUSTEN PERAZA MD [Primary Care Provider] - 07/03/16 Overall discharge status: patient is progressing back to baseline Home Medications: Lisinopril [Prinivil*] 5 mg PO DAILY #30 tablet Disposition: HOME, SELF-CARE Discharge Summary Data - Medication History Medication History: Home Medications Lovastatin [Mevacor*] 10 mg PO HS tablet 06/21/15 aspirin EC [Aspirin EC*] 81 mg PO DAILY tablet 09/24/15 Zolpidem Tartrate [Ambien*] 5 mg PO HS 06/23/16 Lisinopril [Prinivil*] 5 mg PO DAILY #30 tablet 06/26/16 Inpatient Medications 06/26/16 13:06 Lisinopril [Prinivil] 5 mg PO DAILY Procedures and tests throughout hospitalization: Completed Lab Orders 06/26/16 05:00 BMP [BASIC METABOLIC PANEL] [CHEM] AMDRAW CBC AUTO DIF, MDIF/RMOR IF IND [HEM] AMDRAW Pending Orders 06/26/16 13:06 Lisinopril [Prinivil] 5 mg PO DAILY IM: Discharge Physical Exam - I&O/Vital Signs I&O: Intake & Output 06/26/16 06/27/16 06/27/16 21:59 05:59 13:59 Intake Total 360 100 Output Total 225 600 Balance 135 -500 Weight 64 kg 64 kg Intake: Oral 360 100 Output: Urine 225 600 Other: Urine Appearance Clear Clear Urine Color Yellow Yellow Stool Size Moderate Moderate Stool Characteristics Soft Soft Voiding Method Incontinent Incontinent # Voids 3 # Bowel Movements 1 1 Vital Signs: Last Vital Signs Temp 36.7 C 06/27/16 06:30 Pulse 72 06/27/16 06:30 Resp 18 06/27/16 06:30 BP 157/72 06/27/16 06:30 Pulse Ox 92 06/27/16 06:30 Oxygen Flow Rate 1 Oxygen Delivery Method Nasal Cannula - Constitutional General appearance: Present: cooperative, thin. Absent: acute distress - Head Head exam: Present: normal inspection - ENT ENT exam: Present: mucous membranes dry - Respiratory Respiratory exam: Present: decreased breath sounds, clear. Absent: rales, wheezes - Cardiovascular Cardiovascular exam: Present: RRR - GI/Abdominal GI/Abdominal exam: Absent: tenderness - Extremities Exam Extremities exam: Absent: calf tenderness, edema - Neurological Exam Neurological exam: Present: alert. Absent: oriented X3 (did not answer any questions (baseline)) - Psychiatric Psychiatric exam: Present: flat affect - Skin Skin exam: Absent: rash - Allied Health Notes Allied health notes reviewed: nursing, PT
[2016-06-27] MEDS: AZITHROMYCIN 250 MG TABLET PO SCH (08:57)
[2016-06-27] MEDS: POLYETHYLENE GLYCOL 3350 17 GM POWD.PACK PO SCH (08:58)
[2016-06-27] MEDS: cefTRIAXone SODIUM 1,000 MG in NORMAL SALINE MINI-BAG+ 100 ML IV SCH (09:59)
[2016-06-27 13:01] VITALS: O2SAT 94
== END 2016-06-27 12:25 | disposition home or self-care (01) | DRG 178 ==
LOC: ER 02:49 → IN 04:19 → OBSVTOIN 06-24 07:45
PROVIDERS: ADMIT Family Medicine; ATTEND Family Medicine
DX: J69.0 Pneumonitis due to inhalation of food and vomit (principal); R11.11 Vomiting without nausea; E86.0 Dehydration; R13.19 Other dysphagia; R26.0 Ataxic gait; R53.1 Weakness; R29.6 Repeated falls; N39.0 Urinary tract infection, site not specified; I10 Essential (primary) hypertension; K59.00 Constipation, unspecified; E78.00 Pure hypercholesterolemia, unspecified; M10.9 Gout, unspecified; F03.90 Unspecified dementia, unspecified severity, without behavioral disturbance, psychotic disturbance, mood disturbance, and anxiety; T50.99 Poisoning by, adverse effect of and underdosing of other drugs, medicaments and biological substances; Z91.120 Patient's intentional underdosing of medication regimen due to financial hardship; Z85.51 Personal history of malignant neoplasm of bladder; N40.1 Benign prostatic hyperplasia with lower urinary tract symptoms; Z79.899 Other long term (current) drug therapy; Z74.3 Need for continuous supervision
CPT/HCPCS: 36415; 71010; 74022; 80048; 80076; 81015; 83605; 83690; 85025; 87040; 87086; 96360; 96365; 99285; A0425; A0429; G0378; G8978; G8979; J0696; J7030; Q0144